=== PATIENT | female | born 1950 | race Caucasian/White ===

== ENCOUNTER 2018-05-17 09:36 | Outpatient (CLI) | payer MEDICARE ==
--- NOTE | 2018-05-17 11:33 | ULT ---
CAROTID DUPLEX ULTRASOUND: Indication: Right carotid bruit. FINDINGS: There is mild atherosclerotic plaque involving the right carotid bulb and proximal right internal car otid artery. No definite hemodynamically significant stenosis is grossly evident. By velocity, the ri ght common carotid artery had a measurement of 93.8 cm/sec. The right ICA measures 87.3 cm/sec. The r ight ICA/CCA ratio is 0.93. The peak systolic velocity of the left common carotid is 111 cm/sec. Peak systolic velocity in the le ft ICA is 107 cm/sec. Left ICA/CCA ratio is 0.96. Antegrade flow is seen in both vertebral arteries. IMPRESSION: No hemodynamically significant stenosis seen. POS: [facility]
== END 2018-05-17 09:37 | disposition home or self-care (01) ==
LOC: BICULT 09:36
PROVIDERS: ATTEND Family Medicine
DX: R09.89 Other specified symptoms and signs involving the circulatory and respiratory systems (principal)
CPT/HCPCS: 93880

== ENCOUNTER 2018-06-22 10:13 | Outpatient (CLI) | payer MEDICARE ==
--- NOTE | 2018-07-05 11:17 | MMO ---
Bilateral MAMMO Bilat Screen [facility]. CLINICAL HISTORY: Patient is 67 years old and is seen for screening. The patient has no family history of breast cancer. The patient has no personal history of cancer. VIEWS: The views performed were: bilateral craniocaudal with tomosynthesis and bilateral mediolateral oblique with tomosynthesis. FILMS COMPARED: The present examination has been compared to prior imaging studies performed on 05/30/2017, at [facility] on 05/27/2014, 05/27/2015 and 05/28/2016, and at [facility] on 05/30/2017. MAMMOGRAM FINDINGS: There are scattered fibroglandular densities. There are vascular calcifications seen in both breasts. There are no suspicious masses, suspicious calcifications, or new areas of architectural distortion. IMPRESSION: A ROUTINE FOLLOW-UP MAMMOGRAM IN 1 YEAR IS RECOMMENDED. THE RESULTS OF THIS EXAM WERE SENT TO THE PATIENT. ACR BI-RADS Category 2 - Benign finding MAMMOGRAPHY NOTE: 1. A negative mammogram report should not delay a biopsy if a dominant of clinically suspicious mass is present. 2. Approximately 10% to 15% of breast cancers are not detected by mammography. 3. Adenosis and dense breasts may obscure an underlying neoplasm.
== END 2018-06-22 10:14 | disposition home or self-care (01) ==
LOC: BICMAMMO 10:13
PROVIDERS: ATTEND Family Medicine
DX: Z12.31 Encounter for screening mammogram for malignant neoplasm of breast (principal)
CPT/HCPCS: 77063; 77067

== ENCOUNTER 2020-03-21 08:13 | Outpatient (CLI) | payer MEDICARE ==
--- NOTE | 2020-03-21 08:57 | BD ---
DEXA bone density scan: 03/21/2020 COMPARISON: None. HISTORY: Postmenopausal female undergoing screening for osteoporosis. FINDINGS: Lumbar Spine BMD (g/cm2) L1 0.864 T-Score -1.1 L2 0.958 T-Score -0.6 L3 1.086 T-Score 0.0 L4 1.169 T-Score 1.0 L1-L4 1.031 T-Score -0.1 Femoral Neck 0.647 T-Score -1.8 Total Femur 0.754 T-Score -1.5 The FRAX-WHO fracture risk assessment tool reports a 10 year fracture risk in an untreated patient at 10% for major osteoporotic fracture and 2.1% for hip fracture. IMPRESSION: Osteopenia of the femoral neck/proximal femur correlating with a moderately increased risk for fractu re. Transcribed Date/Time: 03/21/2020 9:19 AM
--- NOTE | 2020-03-21 09:13 | MMO ---
Bilateral MAMMO Bilat Screen [facility]. CLINICAL HISTORY: Patient is 69 years old and is seen for screening. The patient has no family history of breast cancer. The patient has no personal history of cancer. VIEWS: The views performed were: bilateral craniocaudal with tomosynthesis and bilateral mediolateral oblique with tomosynthesis. FILMS COMPARED: The present examination has been compared to prior imaging studies performed on 05/30/2017, at [facility] on 06/22/2018, at [facility] on 05/28/2016, and at [facility] on 05/30/2017. This study has been interpreted with the assistance of computer-aided detection. MAMMOGRAM FINDINGS: There are scattered fibroglandular densities. There are vascular calcifications seen in both breasts. There are no suspicious masses, suspicious calcifications, or new areas of architectural distortion. IMPRESSION: THERE IS NO MAMMOGRAPHIC EVIDENCE OF MALIGNANCY. A ROUTINE FOLLOW-UP MAMMOGRAM IN 1 YEAR IS RECOMMENDED. THE RESULTS OF THIS EXAM WERE SENT TO THE PATIENT. ACR BI-RADS Category 2 - Benign finding MAMMOGRAPHY NOTE: 1. A negative mammogram report should not delay a biopsy if a dominant of clinically suspicious mass is present. 2. Approximately 10% to 15% of breast cancers are not detected by mammography. 3. Adenosis and dense breasts may obscure an underlying neoplasm. Reported by: KALI DORSEY MD Electonically Signed: [id number]
== END 2020-03-21 08:14 | disposition home or self-care (01) ==
LOC: BICMAMMO 08:13
PROVIDERS: ATTEND Family Medicine
DX: Z12.31 Encounter for screening mammogram for malignant neoplasm of breast (principal); Z13.820 Encounter for screening for osteoporosis; Z78.0 Asymptomatic menopausal state; M85.89 Other specified disorders of bone density and structure, multiple sites
CPT/HCPCS: 77063; 77067; 77080

== ENCOUNTER 2021-03-24 07:57 | Outpatient (CLI) | payer MEDICARE | END 2021-03-24 07:58 | disposition home or self-care (01) | LOC: BICMAMMO 07:57 | PROVIDERS: ATTEND Family Medicine | DX: Z12.31 Encounter for screening mammogram for malignant neoplasm of breast (principal) | CPT/HCPCS: 77063; 77067 ==

== ENCOUNTER 2021-10-30 08:27 | Outpatient (CLI) | payer MEDICARE | END 2021-10-30 08:28 | disposition home or self-care (01) | LOC: MRI 08:27 | PROVIDERS: ATTEND Orthopaedic Surgery | DX: M75.121 Complete rotator cuff tear or rupture of right shoulder, not specified as traumatic (principal); S43.431A Superior glenoid labrum lesion of right shoulder, initial encounter; M62.512 Muscle wasting and atrophy, not elsewhere classified, left shoulder ==

== ENCOUNTER 2022-03-30 08:45 | Outpatient (CLI) | payer MEDICARE | END 2022-03-30 08:46 | disposition home or self-care (01) | LOC: BICMAMMO 08:45 | PROVIDERS: ATTEND Family Medicine | DX: Z12.31 Encounter for screening mammogram for malignant neoplasm of breast (principal); M85.89 Other specified disorders of bone density and structure, multiple sites | CPT/HCPCS: 77063; 77067; 77080 ==

== ENCOUNTER 2023-04-12 08:52 | Outpatient (CLI) | payer MEDICARE | END 2023-04-12 08:53 | disposition home or self-care (01) | LOC: BICMAMMO 08:52 | PROVIDERS: ATTEND Family Medicine | DX: Z12.31 Encounter for screening mammogram for malignant neoplasm of breast (principal) | CPT/HCPCS: 77063; 77067 ==